=== PATIENT | female | born 1960 | race Asian ===

== ENCOUNTER 2020-07-25 15:25 | Inpatient (IN) | payer OTHER ==
[~2020-07-25] VITALS: Ht 154.9 cm; Wt 55.8 kg
[2020-07-25] VITALS (17 sets, daily range): BP systolic 123–212; BP diastolic 74–109
[2020-07-25] MEDS ORDERED: COZAAR 25 MG TA25 M2 PO (15:33)
[2020-07-25 15:58] LABS: ABSOLUTE NEUTROPHILS 5.7 thou/uL (1.4-8.2); BASOPHILS 0.8 % (0.0-2.0); EOSINOPHILS 1.4 % (0.0-3.0); HEMATOCRIT 39.4 % (37.0-47.0); HEMOGLOBIN 12.9 gm/dL (12.0-15.0); LYMPHOCYTES 23.6 % (24.0-44.0); MCH 28.9 pg (26.0-34.0); MCHC 32.8 g/dL (28.0-37.0); MCV 88.2 fL (80.0-100.0); MONOCYTES 3.7 % (1.0-8.0); PLATELET COUNT 389 thou/uL (150-400); POLYS 70.5 % (36.0-66.0); RBC 4.47 mil/uL (4.20-5.00); RDW 13.5 % (10.5-14.5); WBC 8.1 thou/uL (4.0-11.0)
[2020-07-25] MEDS ORDERED: NOHOMEMEDICATIONS (15:58)
[2020-07-25 16:10] LABS: CALCIUM 8.9 mg/dL (8.5-10.1); CREATININE 0.5 mg/dL (0.6-1.0); POTASSIUM 4.1 mmol/L (3.5-5.1)
[2020-07-25 16:22] LABS: TROPONIN-I 4.16 ng/mL (<0.06)
[2020-07-25 16:55] LABS: APTT 23.8 Seconds (24.5-32.8); PROTIME 10.3 Seconds (9.3-11.4)
--- NOTE | 2020-07-25 17:06 | NUR ---
ATTEMPTED TO CALL REPORT, WAS ADVISED THEY DO NOT KNOW ANYTHING ABOUT THIS PT. COMING TO ICU AND WILL HAVE TO CB
[2020-07-25 17:26] LABS: CHOLESTEROL 215 mg/dL (<200); HDL CHOLESTEROL 63 mg/dL (>40); LDL CHOLESTEROL 116 mg/dL (<100); TC:HDL 3.4 Ratio (Not establshd); TRIGLYCERIDE 180 mg/dL (<150); VLDL 36 mg/dL (<40)
--- NOTE | 2020-07-25 19:20 | NUR ---
PATIENT ADMITTED TO ICU FROM E.D AT 1840. PLACED ON THE MONITOR. ALERT AND ORIENTED. HYPERTENSIVE AND STARTED ON NITRO GTT AND IV FLUID, ALSO PENDING TO START HEPARIN GTT ONCE DOSING SHEET RECEIVED FROM PHARMACY. PATIENT ORIENTED TO THE CALLING SYSTEM AND ADVICED TO CALL FOR ASSISTANCE. USED BATHROOM W/O DIFFICULT AND RATED HER CP AT 3. REPORT GIVEN TO NIGHT RN JUN.
--- NOTE | 2020-07-25 22:57 | NUR ---
Pt care assumed at 1915; pt rating chest pain at 4/10, also c/o of mild headache. Heparin gtt started at 1999. 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 This education and update on pt condition also given to pt's son, Elia when he called at approximately 2014. Pt able to get up to BSC with standby assist but does c/o of some dizziness when up. Headache now up to 8/10, but chest pain is 0. Tylenol given for headache. BP within acceptable parameters.
[2020-07-26] VITALS (21 sets, daily range): BP systolic 140–197; BP diastolic 63–104
[2020-07-26 03:06] LABS: GLYCOHEMOGLOBIN (HGB A1C) 5.8 % (4.8-5.6)
--- NOTE | 2020-07-26 07:03 | EKG ---
[address] [place] [email or web address] [address] ELECTROCARDIOGRAM REPORT Name: HIEN ARAGON Room #: 245-P ADM IN M.R.#: [id number] Admission: 07/25/20 Attend Phys: Bernadette Nieto Discharge: Date of : 58 Report #: [id number] [facility] ED Test Date: 2020-07-25 Test Time: 15:32:18 Pat Name: HIEN ARAGON Department: Room: [facility] Gender: F Post Adoption Coordinator: WYATT : 1960 Requested By: Cong Rossi Order Number: [id number] MD: Davian Baker Measurements Intervals [place] Rate: 76 P: 51 GA: 143 QRS: 32 QRSD: 101 T: 49 QT: 418 QTc: 471 Interpretive Statements Sinus rhythm Probable left atrial enlargement Abnormal inferior Q waves Borderline ST elevation, anterolateral leads No previous ECG available for comparison Electronically Signed On 07-26-2020 7:03:13 HOME HEALTH BILLING SPECIALIST by Davian Baker [email or web address] <ELECTRONICALLY SIGNED> By: Davian Baker MD, [facility] 07/26/20 0703 1532 1532 Davian Baker MD, FACC /EPI
--- NOTE | 2020-07-26 07:19 | NUR ---
Pt remains hypertensive despite NTG gtt at 10 mcg/min. Pt c/o of headache which she rates 8-10/10. Tylenol given x2 with very little relief obtained. Monitor has remained sinus rhythm with BBB, no ST elevation noted. Heparin gtt titrated per protocol. Chest pain relieved by NTG gtt; pt states she barely notices it. Pt up to BSC several times during night with stand-by assist, intermittent dizziness when up.
--- NOTE | 2020-07-26 10:49 | 2DMMODE ---
[facility] [place] [address] 2 D/M-MODE ECHOCARDIOGRAM Name: HIEN ARAGON Room #: 245-P ADM IN M.R.#: [id number] Admission: 07/25/20 Attend Phys: Bernadette Nieto Discharge: Date of : 58 Report #: [id number] THIS REPORT FOR: cc: FAM - No family physician/PCP FAM - No family physician/PCP Liam Oakley MD [facility] ~ APPROVED REPORT Study performed: 07/26/2020 09:17:36 EXAM: Comprehensive 2D, Doppler, and color-flow Echocardiogram Patient Location: ICU Room #: [facility] Status: routine BSA: 1.52 HR: 71 bpm BP: 193/100 mmHg Rhythm: NSR Other Information Study Quality: Good Indications Chest Pain Hypertension/HDD 2D Dimensions RVDd: 38.58 mm IVSd: 11.28 (7-11mm) LVOT Diam: 20.98 (18-24mm) LVDd: 35.61 mm PWd: 10.79 (7-11mm) Ascending Ao: 26.30 (22-36mm) LVDs: 23.02 (25-40mm) Aortic Root: 26.70 mm IVC: 13.00 mm Volumes Left Atrial Volume (Systole) Single Plane 4CH: 27.87 mL Single Plane 2CH: 23.38 mL LA ESV Index: 19.00 mL/m2 Aortic Valve AoV Peak Cole.: 1.61 m/s AO Peak Gr.: 10.32 mmHg LVOT Max P.62 mmHg LVOT Max V: 1.19 m/s PAULA Vmax: 2.55 cm2 [facility] [address] [place] [address] 2 D/M-MODE ECHOCARDIOGRAM Name: MAHESHHIEN Room #: 245-P [facility] IN [facility].#: [id number] Admission: 07/25/20 Attend Phys: Bernadette Giraldo Aug Discharge: Date of : 58 Report #: [id number] Mitral Valve E/A Ratio: 0.8 MV Decel. Time: 206.65 ms MV E Max Cole.: 0.94 m/s MV A Cole.: 1.24 m/s MV PHT: 59.93 ms IVRT: 129.18 ms Pulmonary Valve PV Peak Cole.: 0.85 m/s PV Peak Gr.: 2.86 mmHg Pulmonary Vein P Vein S: 0.55 m/s P Vein A: 0.25 m/s P Vein D: 0.32 m/s P Vein A Dur.: 101.5 msec P Vein S/D Ratio: 1.72 Tricuspid Valve TR Peak Cole.: 2.53 m/s TR Peak Gr.: 25.69 mmHg PA Pressure: 30.00 mmHg Left Ventricle The left ventricle is normal size. There is normal LV segmental wall motion. There is normal left ventricular wall thickness. The left ventricular systolic function is normal. The left ventricular ejection fraction is within the normal range. LVEF is 60-65%. Mild diastolic dysfunction is present (impaired relaxation pattern). Right Ventricle The right ventricle is normal size. The right ventricular systolic function is normal. Atria The left atrium size is normal. The right atrium size is normal. Aortic Valve The aortic valve is normal in structure. No aortic regurgitation is present. There is no aortic valvular stenosis. Mitral Valve The mitral valve is normal in structure. Mild mitral regurgitation. No evidence of mitral valve stenosis. [facility] [place] [place] [address] 2 D/M-MODE ECHOCARDIOGRAM Name: HIEN ARAGON Room #: 245-P ADM IN M.R.#: [id number] Admission: 07/25/20 Attend Phys: Bernadette Aguirre Discharge: Date of : 58 Report #: [id number] Tricuspid Valve The tricuspid valve is normal in structure. There is trace tricuspid regurgitation. Estimated PAP 30 mmHg. There is no pulmonary hypertension. Pulmonic Valve The pulmonary valve is normal in structure. There is no pulmonic valvular regurgitation. Great Vessels The aortic root is normal in size. IVC is normal in size and collapses >50% with inspiration. Pericardium There is no pericardial effusion. <Conclusion> The left ventricular systolic function is normal. There is normal LV segmental wall motion. LVEF is 60-65%. Mild diastolic dysfunction is present (impaired relaxation pattern). The aortic valve is normal in structure. No aortic regurgitation or stenosis. The mitral valve is normal in structure. Mild mitral regurgitation. There is trace tricuspid regurgitation. Estimated pulmonary artery pressure of 30 mmHg. There is no pericardial effusion. <ELECTRONICALLY SIGNED> By: Liam Oakley MD, FACC 07/26/20 1049 1049 1049 Liam Oakley MD, FACC /INF
--- NOTE | 2020-07-26 11:06 | NUR ---
chart review. demarco called, spoke with dwaine via phone call. intro to cm and kishanp. she reported " oh independent, live with spouse at home, 6 [address] in from garage[address] 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 no dr right now, would like to use same dr does. my dr pasted away and then covid so i do not have dr right now. no health insurance right now"/dwaine. education on cont medication, and not taking other family members medication. she will need assistance with medication at [place].
--- NOTE | 2020-07-26 14:46 | NUR ---
PT TO CV HOLDING VIA BED ON PORTABLE CARDIAC MONITORING W/ HEPARIN DRIP INFUSING DOCUMENTED. PT STABLE, AWAKE AND ALERT AT TIME OF TRANSPORT.
--- NOTE | 2020-07-26 16:28 | CATHLAB ---
[facility] [place] [address] INVASIVE PROCEDURE REPORT Name: HIEN ARAGON Room #: 245-P ADM IN M.R.#: [id number] Admission: 07/25/20 Attend Phys: Bernadette Nieto Discharge: Date of : 58 Report #: [id number] THIS REPORT FOR: cc: FAM - No family physician/PCP FAM - No family physician/PCP Kade Dubon MD ~ APPROVED REPORT Study performed: 07/26/2020 14:02:58 Patient Details The patient is a 59 year-old female Event Personnel Kade Dubon Highway Technician, Tomasa Frank RN RN, Jamila Jane RTR, Mansoor Gurrola Sherra RTR Monitor, Janel Coronel RN RN, German Ignacio RTR Board Member Procedures Performed Art Access - R femoral artery* 59916 Initial Mod Sed Same Phys/QHP Gr5y [id number] 42093 Mod Sed Same Phys/QHP Ea [id number] Left Heart Cath w/or w/o Coronaries [id number] [facility] Hemostasis with Manual pressure Indication Non-STEMI , Dyspnea, Chest pain Risk Factors Hypercholesterolemia, Hypertension Procedure Narrative The Right Groin^ was infiltrated with 1% Lidocaine subcutaneous anesthesia. A PINNACLE 4FR Sheath #[id number] sheath was inserted into the RFA^. Coronary angiography was performed using coronary diagnostic catheters. The right coronary system was accessed and visualized with a JR4 catheter. The left coronary system was accessed and visualized with a JL4 catheter. The left ventricle was accessed and visualized with a PIGTAIL catheter. Left ventriculogram was performed in 30 degree projection. Hemostasis was obtained with manual pressure following sheath removal without any complications. The patient tolerated the procedure well and there were no complications associated with the procedure. There was no hematoma. [facility] [address] [place] [address] INVASIVE PROCEDURE REPORT Name: HIEN ARAGON Room #: 245-P [facility] IN M.R.#: [id number] Admission: 07/25/20 Attend Phys: Bernadette Aguirre Discharge: Date of : 58 Report #: [id number] Intraoperative Conscious Sedation Sedation start time: 1506 Case end Time: 1537 Fentanyl 50 mcg Versed 1 mg Fluoro Time: 4.33 minutes Dose: DAP 2932.20 cGycm2 342 mGy Contrast Type and Amount: Omnipaque 100 ml Coronary Angiography The patient's coronary anatomy is right dominant. Diagnostic Cath Left Main The left main artery is a large-caliber vessel, patent with no flow-limiting lesions. LAD The LAD is a moderate sized caliber vessel, traverses the anterior wall and terminates at the apex. There appears to be minimal plaquing in the mid segment. Diagonal 1 This is a moderate-sized caliber vessel, divides into 2 branches. This vessel is patent with no flow-limiting lesions. Circumflex The left circumflex artery is a moderate-sized caliber vessel, patent with no flow-limiting lesions. OM1 This is a small to moderate-sized caliber vessel, with no flow-limiting lesions. OM2 This is a small to moderate-sized caliber vessel, with no flow-limiting lesions. OM3 This is a small to moderate-sized caliber vessel, with no flow-limiting lesions. Right Coronary The RCA is a moderate-sized caliber vessel, dominant with no flow-limiting lesions. R PDA This is a moderate-sized caliber vessel, patent with no flow-limiting lesions. RPLV This is a moderate-sized caliber vessel, patent with no flow-limiting lesions. Left Ventriculography The left ventricle is normal in size with normal contractility. The left ventricular ejection fraction is estimated to be >55%. Left ventricular wall motion abnormalities are present. There is focal hypokinesis of the distal anterolateral segment. Hemodynamics The left ventricular pressure is 177/10 mmHg with a mean of mmHg. The left ventricular end diastolic pressure is 27 mmHg. [facility] [address] [place] [address] INVASIVE PROCEDURE REPORT Name: MAHESHHIEN Room #: 245-P [facility] IN M.R.#: [id number] Admission: 07/25/20 Attend Phys: Bernadette Aguirre Discharge: Date of : 58 Report #: [id number] Conclusion 1. Angiographically normal coronary arteries, with minimal plaquing in the mid LAD segment. 2. Right dominant system. 3. Normal LV systolic function, with focal hypokinesis of the distal anterolateral segment. 4. Impression: Probable focal myocarditis. Recommend aggressive risk factor management. <ELECTRONICALLY SIGNED> By: Kade Dubon MD 07/26/20 1628 1628 1628 Kade Dubon MD /INF
--- NOTE | 2020-07-26 16:48 | NUR ---
AT 1609, RETURNED FROM INDUSTRIAL EDITOR IN ICU BED WITH DIAGNOSIS: FOCAL MYOCARDITIS. SR, R GROIN GUAZE/OPSITE DRESSING DRY/INTACT WITHOUT BLEEDING, BRUISING OR HEMATOMA, PEDAL PULSE- 2+. DENIES ANY CARDIAC SIGNS/SYMPTOMS.
[2020-07-27] VITALS (7 sets, daily range): BP systolic 116–157; BP diastolic 67–85
--- NOTE | 2020-07-27 04:39 | NUR ---
ASSUMED PT CARE AT 1900. VSS. PT A&0X4. PT HAD AN UNEVENTFUL NOC. GOT UP SEVRAL TIMES TO VOID. RIGHT GROIN ACCESS SITE REMIANS CDI. RN NOTICED PT MAY HAVE SOME UNDIAGNOSED SLEEP APNEA PT WOULD BRIEFLY DESAT TO HIGH 70s TO 80s WITH DEEP SLEEP BUT WILL COME BACK UP TO 98% ON ROOM AIR ALMOST IMMEDIATELY. PT PLACED ON 2L NC FOR SLEEP AT 0000. PT IS STABLE NO OTHER ISSUES WILL CONTINUE TO MONITOR PER POC
[2020-07-27 05:59] LABS: HEMATOCRIT 37.1 % (37.0-47.0); MCH 29.3 pg (26.0-34.0); MCHC 32.3 g/dL (28.0-37.0); MCV 90.5 fL (80.0-100.0); RBC 4.1 mil/uL (4.20-5.00); RDW 13.6 % (10.5-14.5); WBC 7.8 thou/uL (4.0-11.0)
[2020-07-27 06:27] LABS: CALCIUM 8.4 mg/dL (8.5-10.1); CREATININE 0.7 mg/dL (0.6-1.0); POTASSIUM 3.9 mmol/L (3.5-5.1)
--- NOTE | 2020-07-27 09:46 | NUR ---
cm notified by cm team that dr coleman say ok to dc, follow up outpt with cardiology. cm spoke sent message to hospitalist to have medication sent to outpt [facility], cm vouch 1 month no refills. resources for [facility], [facility], [employer] and [facility] provided. cm spoke with bedside nurse as well. possible dc home today.
[2020-07-27] MEDS ORDERED: LIPITOR40 MG PO (10:05)
[2020-07-27] MEDS ORDERED: BENICAR20 MG PO (10:05)
[2020-07-27] MEDS ORDERED: ADULT LOW DOSE81 MG PO (10:05)
[2020-07-27] MEDS ORDERED: CARVEDILOL25 MG PO (10:05)
--- NOTE | 2020-07-27 12:05 | NUR ---
denies any cardiac signs/symptoms. r groin dressing dry/intact, no bleeding, bruising or hematoma with 2+ pedal pulses. call placed to dr. moore to obtain order for pt breakfast. prior to hospital admission, pt was unable to obtain medications related to costs. francesca rn, case management obtained 30 day supply of medication from the outpt hospital pharmacy (hospital paid) and medication given to pt. also, two options for pharmacy meds at reduced cost and for [facility] follow-up at [place] for cardiology services included in discharge instructions. iv dc'd, discharge instructions discussed, verbalized understanding. pt inquired regarding status of applying for medicaid. obtained phone number for her to continue her contact with continuation of medicaid process. per wheelchair, discharged to home with her friend driving vehicle.
== END 2020-07-27 12:05 | disposition home or self-care (01) | DRG 282 ==
LOC: ER 15:25 → EROBS 16:40 → 2N 18:31 → ICU 18:36
PROVIDERS: Internal Medicine Cardiovascular Disease; Nurse Practitioner; ADMIT Hospitalist; ATTEND Hospitalist
PROC: B2151ZZ Fluoroscopy of Left Heart using Low Osmolar Contrast (ICD-10-PCS; principal; 2020-07-26)
PROC: B2111ZZ Fluoroscopy of Multiple Coronary Arteries using Low Osmolar Contrast (ICD-10-PCS; principal; 2020-07-26)
PROC: 4A023N7 Measurement of Cardiac Sampling and Pressure, Left Heart, Percutaneous Approach (ICD-10-PCS; principal; 2020-07-26)
DX: I21.4 Non-ST elevation (NSTEMI) myocardial infarction (principal); Z20.822 Contact with and (suspected) exposure to COVID-19; I10 Essential (primary) hypertension; E78.5 Hyperlipidemia, unspecified; O80 Encounter for full-term uncomplicated delivery; Z91.19 Patient's noncompliance with other medical treatment and regimen; Z79.82 Long term (current) use of aspirin; Z79.899 Other long term (current) drug therapy
CPT/HCPCS: 10078